=== PATIENT | male | born 1980 | race Caucasian/White ===

== ENCOUNTER 2021-08-12 13:00 | Emergency (ER) | payer OTHER, SELFPAY ==
[2021-08-12 13:06] VITALS: BP 139/68; PULSE 81; RESP 14; TEMP 36.7; O2SAT 100
--- NOTE | 2021-08-12 14:14 | ED.BACK ---
HPI - Back Pain/Injury General Chief Complaint: Back Pain/Injury Stated Complaint: back pain Time Seen by Provider: 08/12/21 14:07 Source: patient and RN notes reviewed Mode of arrival: ambulatory Limitations: no limitations History of Present Illness HPI Narrative: Patient presents today with left-sided low back pain. He slipped coming out of the shower yesterday and strained his back. Denies radiation of the pain. Denies numbness or tingling in the extremities or genitals. Denies any loss of bowel or bladder control. He currently rates his pain 6/10, which increases with movement. He has been taking naproxen without relief. MD elicited complaint: back injury Related Data Home Medications Medication Instructions Recorded Confirmed mometasone 1 applic TOPICAL DAILY 08/20/19 08/12/21 Allergies Allergy/AdvReac Type Severity Reaction Status Date / Time No Known Allergies Allergy Verified 08/20/19 15:48 Review of Systems Review of Systems: CONSTITUTIONAL: Denies body aches, fever, chills, or sweats. EYES: Denies visual changes, redness, or discharge. ENT: Denies rhinorrhea, congestion, sore throat, or otalgia. CARDIOVASCULAR: Denies chest pain, palpitations, or edema. RESPIRATORY: Denies cough or dyspnea. GASTROINTESTINAL: Denies abdominal pain, nausea, vomiting, or diarrhea. GENITOURINARY: Denies dysuria or hematuria. SKIN: Denies rash, itching, or wounds. MUSCULOSKELETAL: Denies joint pain, or myalgia.+Left low back pain NEUROLOGIC: Denies headache, numbness, tingling, or weakness. PSYCH: Denies depression or anxiety. PMFSH Past Medical History Medical History (Updated 08/12/21 @ 14:22 by Krys Barbour, [employer], ) Psoriasis Social History Social History Social History: 1/2-1pack Smoking status: Current every day smoker Exam Narrative: GENERAL: Well-appearing, well-nourished, and in no acute distress. HEAD: Normocephalic, atraumatic. EYES: EOMI. No redness or drainage. Conjunctivae normal. ENT: Mucous membranes pink and moist. NECK: Normal AROM. CHEST: No respiratory distress. MUSCULOSKELETAL: No bony tenderness of the spine. Left lower lumbar paraspinal muscle tenderness. No tenderness to the SI joint. Distal sensation intact. Saddle sensation intact. Capillary refill normal. Dorsiflexion and plantarflexion equal and strong against resistance. Pedal pulses normal. EXTREMITIES: Normal range of motion. No edema. SKIN: Warm, dry, no rash. Capillary refill normal. Normal skin turgor. NEURO: No focal deficits. Alert and oriented x3. Gait steady. PSYCH: Normal affect. No signs of depression or anxiety. Course Vital Signs Vital signs: Vital Signs Temperature 98.1 F 08/12/21 13:06 Pulse Rate 81 08/12/21 13:06 Respiratory Rate 14 08/12/21 13:06 Blood Pressure 139/68 08/12/21 13:06 Pulse Oximetry 100 08/12/21 13:06 Temperature 98.1 F 08/12/21 13:06 Pulse Rate 81 08/12/21 13:06 Respiratory Rate 14 08/12/21 13:06 Blood Pressure 139/68 08/12/21 13:06 Pulse Oximetry 100 08/12/21 13:06 Reviewed. Pt has been instructed to follow up with his PCP regarding his elevated blood pressure today. MDM - Back Pain/Injury Differential Diagnosis Differential diagnosis: Likely lumbar radiculopathy and strain of lumbar region Critical Care Time Critical Care Time Critical Care Time: No Discharge Plan Discharge Clinical Impression: Low back strain Qualifiers: Encounter type: initial encounter Qualified Code(s): S39.012A - Strain of muscle, fascia and tendon of lower back, initial encounter Patient Disposition: Home, Self-Care Condition: Stable Instructions: Low Back Strain (ED) Additional Instructions: Please take the Flexeril and prednisone as directed. Do not drive within 8 hours of taking the Flexeril as it can make you drowsy. Follow-up with your PCP in 3 to 4 days if symptom
== END 2021-08-12 14:26 | disposition home or self-care (01) ==
PROVIDERS: Emergency Provider Nurse Practitioner
DX: S39.012A Strain of muscle, fascia and tendon of lower back, initial encounter (principal); W18.40XA Slipping, tripping and stumbling without falling, unspecified, initial encounter; F17.200 Nicotine dependence, unspecified, uncomplicated
CPT/HCPCS: 99213; G0463

== ENCOUNTER 2022-04-08 13:29 | Emergency (ER) | payer OTHER, SELFPAY ==
--- NOTE | 2022-04-08 13:33 | ED.BACK ---
HPI - Back Pain/Injury General Chief Complaint: Back Pain/Injury Stated Complaint: lower back right side pain Time Seen by Provider: 04/08/22 13:33 Source: patient and RN notes reviewed History of Present Illness HPI Narrative: Patient is a 41-year-old male who presents the urgent care with complaints of right lower back pain. Patient states that started approximately 6 days ago after he took a bus ride to [place] from [place]. 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 Patient denies any urinary symptoms. Denies any radiation of the pain except when from sitting to standing. Patient has been using naproxen with mild pain relief. Denies of any known injury or recent strenuous activity. No acute distress noted. Patient aware of the plan of care. Some parts of this dictation were generated by voice recognition software and may contain typographical and/or grammatical inaccuracies. Related Data Home Medications Medication Instructions Recorded Confirmed mometasone 0.1 % topical cream 1 applic topical DAILY 08/20/19 04/08/22 Allergies Allergy/AdvReac Type Severity Reaction Status Date / Time No Known Allergies Allergy Verified 04/08/22 13:44 Review of Systems Review of Systems: CONSTITUTIONAL: Denies fever, chills, or sweats. EYES: Denies visual changes, redness, or discharge. ENT: Denies rhinorrhea, congestion, sore throat, or otalgia. CARDIOVASCULAR: Denies chest pain, palpitations, or edema. RESPIRATORY: Denies cough or dyspnea. GASTROINTESTINAL: Denies abdominal pain, nausea, vomiting, or diarrhea. GENITOURINARY: Denies dysuria or hematuria. SKIN: Denies rash or itching. MUSCULOSKELETAL: Reports of right lower back pain NEUROLOGIC: Denies headache, numbness, or weakness. All other systems reviewed are negative, except as documented in HPI. [facility]LY [facility] Past Medical History Medical History (Updated 04/08/22 @ 13:56 by EFE Galeano) Psoriasis Social History Social History Social History: 1/2-1pack Smoking status: Current every day smoker Comments At the time of my signature, I reviewed and agree with the nursing past medical, surgical, social, and family history. There is no relevant family history pertinent to the patient complaint. Exam Narrative: GENERAL: This is a well-nourished, well-developed patient, in no apparent distress. HEAD: normocephalic, atraumatic. EYES: PERRL. Sclera clear/white. Vision is grossly intact. EARS: External ears normal NOSE: External nose normal with no obvious nasal discharge, nares without redness, no rhinorrhea. THROAT: Mucous membranes moist NECK: Neck supple SKIN: warm, intact with no suspicious lesions or rash, good texture and turgor. NEURO: awake, alert, and oriented to person, place and time. There were no obvious focal neurologic abnormalities. EXTREMITIES: No clubbing, cyanosis, or edema. BACK: Negative CVA tenderness bilaterally. Negative SLE exam. Mild right lower lumbar tenderness Course Course Level of Care: Express Care Visit Vital Signs Vital signs: Vital Signs Temperature 97.8 F 04/08/22 13:34 Pulse Rate 86 04/08/22 13:34 Respiratory Rate 20 04/08/22 13:34 Blood Pressure 131/73 04/08/22 13:34 Pulse Oximetry 98 04/08/22 13:34 Oxygen Delivery Room Air 04/08/22 13:34 Temperature 97.8 F 04/08/22 13:34 Pulse Rate 86 04/08/22 13:34 Respiratory Rate 20 04/08/22 13:34 Blood Pressure 131/73 04/08/22 13:34 Pulse Oximetry 98 04/08/22 13:34 Oxygen Delivery Room Air 04/08/22 13:34 Reviewed MDM - Back Pain/Injury MDM Narrative Medical decision making narrative: Advised the patient to complete the oral steroid regimen as prescribed. Use the Flexeril only before bedtime. Do not use the Flexeril while driving due to drowsiness. Use the ibuprofen as needed for pain or discomfort. Be sure to eat and
[2022-04-08 13:34] VITALS: BP 131/73; PULSE 86; RESP 20; TEMP 36.6; O2SAT 98
== END 2022-04-08 14:03 | disposition home or self-care (01) ==
PROVIDERS: Emergency Provider Nurse Practitioner Family
DX: S39.012A Strain of muscle, fascia and tendon of lower back, initial encounter (principal); X58.XXXA Exposure to other specified factors, initial encounter; F17.200 Nicotine dependence, unspecified, uncomplicated; L40.9 Psoriasis, unspecified
CPT/HCPCS: 99213; G0463

== ENCOUNTER 2022-12-20 17:46 | Emergency (ER) | payer OTHER, SELFPAY ==
--- NOTE | 2022-12-20 17:50 | ED.URI ---
HPI - URI/Sore Throat General Chief Complaint: Upper Respiratory Infection Stated Complaint: Cough/Chest Congestion Time Seen by Provider: 12/20/22 17:52 Source: patient and RN notes reviewed History of Present Illness HPI Narrative: Patient is a 42-year-old male who presents to urgent care with complaints of persistent cough with congestion. Patient has been using Mucinex as well as the Tessalon was prescribed to him from the emergency room on Friday. Patient states that he had a chest x-ray, flu test, strep and COVID which were all negative. Patient states he cannot stop coughing. Denies any fever, chest discomfort or shortness of breath. No other acute complaints. No acute distress noted. Patient aware of the plan of care. Some parts of this dictation were generated by voice recognition software and may contain typographical and/or grammatical inaccuracies. Related Data Home Medications Medication Instructions Recorded Confirmed benzonatate 200 mg capsule 200 mg PO TID PRN Cough 12/20/22 12/20/22 Allergies Allergy/AdvReac Type Severity Reaction Status Date / Time No Known Allergies Allergy Verified 12/20/22 17:59 Review of Systems Review of Systems: CONSTITUTIONAL: Denies fever, chills, or sweats. EYES: Denies visual changes, redness, or discharge. ENT: Denies rhinorrhea, congestion, sore throat, or otalgia. CARDIOVASCULAR: Denies chest pain, palpitations, or edema. RESPIRATORY: Reports a persistent harsh cough without dyspnea GASTROINTESTINAL: Denies abdominal pain, nausea, vomiting, or diarrhea. GENITOURINARY: Denies dysuria or hematuria. SKIN: Denies rash or itching. MUSCULOSKELETAL: Denies back pain, joint pain, or myalgia. NEUROLOGIC: Denies headache, numbness, or weakness. All other systems reviewed are negative, except as documented in HPI. [facility] Past Medical History Medical History (Updated 12/20/22 @ 18:04 by EFE Galeano) Psoriasis Social History Social History Social History: 1/2-1pack Smoking status: Current every day smoker Comments At the time of my signature, I reviewed and agree with the nursing past medical, surgical, social, and family history. There is no relevant family history pertinent to the patient complaint. Exam Narrative: GENERAL: This is a well-nourished, well-developed patient, in no apparent distress. HEAD: normocephalic, atraumatic. EYES: PERRL. Sclera clear/white. Vision is grossly intact. EARS: External ears normal, auditory canals clear and without drainage, TMs normal without perforation. Hearing grossly intact. NOSE: External nose normal with no obvious nasal discharge, nares without redness, no rhinorrhea. THROAT: Mucous membranes moist, posterior pharynx clear. Moderate postnasal drainage NECK: Neck supple RESPIRATORY: Slightly diminished bibasilar, clear. No wheezes, rales, or rhonchi. Persistent harsh cough noted on exam without production SKIN: warm, intact with no suspicious lesions or rash, good texture and turgor. NEURO: awake, alert, and oriented to person, place and time. There were no obvious focal neurologic abnormalities. EXTREMITIES: No clubbing, cyanosis, or edema. Course Course Level of Care: Express Care Visit Vital Signs Vital signs: Vital Signs Temperature 97.7 F 12/20/22 17:51 Pulse Rate 77 12/20/22 17:51 Respiratory Rate 18 12/20/22 17:51 Blood Pressure 151/82 H 12/20/22 17:51 Pulse Oximetry 100 12/20/22 17:51 Oxygen Delivery Room Air 12/20/22 17:51 Temperature 97.7 F 12/20/22 17:51 Pulse Rate 77 12/20/22 17:51 Respiratory Rate 18 12/20/22 17:51 Blood Pressure 151/82 H 12/20/22 17:51 Pulse Oximetry 100 12/20/22 17:51 Oxygen Delivery Room Air 12/20/22 17:51 Reviewed- Patient is informed that they may have pre-hypertension or hypertension based on a blood pressure reading in the department. I recommend
[2022-12-20 17:51] VITALS: BP 151/82; PULSE 77; RESP 18; TEMP 36.5; O2SAT 100
== END 2022-12-20 18:08 | disposition home or self-care (01) ==
PROVIDERS: Emergency Provider Nurse Practitioner Family
DX: J40 Bronchitis, not specified as acute or chronic (principal); F17.200 Nicotine dependence, unspecified, uncomplicated; L40.9 Psoriasis, unspecified
CPT/HCPCS: 99213; G0463

== ENCOUNTER 2024-01-20 17:57 | Emergency (ER) | payer OTHER, SELFPAY ==
[2024-01-20 18:04] VITALS: BP 131/78; PULSE 75; RESP 18; TEMP 36.6; O2SAT 98
--- NOTE | 2024-01-20 18:26 | ED.GENADULT ---
HPI - General Adult General Chief complaint: Ear Stated complaint: Left Ear Problem Source: patient Mode of arrival: ambulatory Limitations: no limitations History of Present Illness HPI narrative: Patient presents for evaluation of what he believes to be a left-sided cerumen impaction. Symptom onset approximately 4 days ago. He experienced pressure in the left ear with decreased hearing. He also developed a frontal headache. He has tried to irrigate the ear with hydrogen peroxide with some improvement however he continues to have hearing loss on the left. When he did irrigate his left ear he only saw a small amount of flakes in the water after irrigation. He did not see any significant amount of cerumen. He denies any infectious symptoms including but not limited to fever, chills, sore throat, cough, shortness of breath. He states about a month ago he noted what he believed to be some bloody drainage from the left ear. He used a camera to evaluate the ear canal after irrigation and thought that there was residual cerumen present. Related Data Home Medications Medication Instructions Recorded Confirmed mometasone 0.1 % topical ointment applic topical DAILY 01/20/24 Allergies Allergy/AdvReac Type Severity Reaction Status Date / Time No Known Allergies Allergy Verified 01/20/24 18:12 Review of Systems Review of Systems: CONSTITUTIONAL: Denies fever, chills, or sweats. EYES: Denies visual changes, redness, or discharge. ENT: Reports what he believes to be cerumen impaction in the left ear with hearing loss. Denies rhinorrhea, congestion, sore throat CARDIOVASCULAR: Denies chest pain, palpitations, or edema. RESPIRATORY: Denies cough or dyspnea. GASTROINTESTINAL: Denies abdominal pain, nausea, vomiting, or diarrhea. GENITOURINARY: Denies dysuria or hematuria. SKIN: Denies rash or itching. MUSCULOSKELETAL: Denies back pain, joint pain, or myalgia. NEUROLOGIC: Denies headache, numbness, dizziness, or weakness. PSYCHIATRIC: Denies anxiety or depression. [facility] Past Medical History Medical History Psoriasis Surgical History Surgical History No pertinent past surgical history Family History Family History Mother Unknown family medical history Social History Social History Social History: 1/2-1pack Smoking status: Current every day smoker Substance use: never Gender identity (if verbalized by the patient): Male Spiritual care concerns: No Exam Narrative: GENERAL: Well-appearing, well-nourished, and in no acute distress. HEAD: Normocephalic, atraumatic. EYES: PERRLA and EOMI. ENT: Nares clear, no rhinorrhea or epistaxis. Mucous membranes moist. Oropharynx without tonsillar hypertrophy exudate or other lesions. There is a dark brown/green substance in the left ear that obstructs view of the TM from about 4 to 8 o'clock NECK: Supple. No adenopathy or masses. No carotid bruits or JVD CHEST: Clear to auscultation. No respiratory distress. No wheezes rales or rhonchi HEART: Regular rate and rhythm. No murmur heard. Normal peripheral pulses. ABDOMEN: Soft, nontender, nondistended, normal active bowel sounds. EXTREMITIES: Normal range of motion. No edema. SKIN: Warm, dry, no rash. NEURO: No focal deficits. Alert and oriented x3. PSYCH: Normal mood and affect. Course Course Emergency Course: This is a 43-year-old male who presented for evaluation of what he believes to be a cerumen impaction on the left. I irrigated his ear with hydrogen peroxide and water without any exudate/cerumen removed. We applied debrox and attempted irrigation again. No cerumen or exudate was removed. On closer inspection it appears that the green/brown substance is fixed and
== END 2024-01-20 19:15 | disposition home or self-care (01) ==
PROVIDERS: Emergency Provider Nurse Practitioner
DX: H92.02 Otalgia, left ear (principal); H91.92 Unspecified hearing loss, left ear; L40.9 Psoriasis, unspecified; F17.200 Nicotine dependence, unspecified, uncomplicated
CPT/HCPCS: 99213; A9270; G0463